=== PATIENT | female | born 1990 | race Caucasian/White ===

== ENCOUNTER 2018-08-12 08:57 | Day surgery (SDC) | payer OTHER ==
[2018-08-09 15:23] VITALS: BMI 22.0
[2018-08-12] MEDS ORDERED: PROPOFOL 20 ML ONE ×2 (09:45)
[2018-08-12] MEDS ORDERED: LIDOCAINE HCL/PF 2% SDV 5ML VIAL ONE (10:47)
[2018-08-12 11:54] VITALS: TEMP 98.4
[2018-08-12 12:26] VITALS: BP 124/70; PULSE 76
--- NOTE | 2018-08-14 15:53 | PATH ---
Surgical Pathology Report Patient Name: MARIMAR DODD [facility]. Rec. #: [id number] /Age/Gender: 1990 (Age: 28) / F Account: [id number] Location: [facility] Taken: 08/12/2018 Received: 08/12/2018 Reported: 08/14/2018 Physicians: Gilberto Newton M.D. Specimen(s) Received A: BX SECOND PORTION DUODENUM B: BX GASTRIC ANTRUM C: BX ESOPHAGUS Clinical History Globus Postoperative diagnosis: Gastritis, 50 foot dilator pass used Final Diagnosis A. SECOND PORTION DUODENUM, BIOPSY: DUODENUM MUCOSA WITH MILD NONSPECIFIC CHRONIC DUODENITIS. NO DEFINITIVE HISTOLOGIC EVIDENCE OF INTRAEPITHELIAL LYMPHOCYTOSIS. B. GASTRIC ANTRUM, BIOPSY: GASTRIC MUCOSA WITH CHRONIC GASTRITIS. IMMUNOSTAIN FOR H. PYLORI IS NEGATIVE. NEGATIVE FOR INTESTINAL METAPLASIA. C. ESOPHAGUS, BIOPSY: ESOPHAGEAL MUCOSA WITH NO SIGNIFICANT PATHOLOGY CHANGE. NEGATIVE FOR INTESTINAL METAPLASIA. NO HISTOLOGIC EVIDENCE OF EOSINOPHILIC ESOPHAGITIS. Electronically Signed Benito Méndez M.D. Gross Description A. Received in formalin, labeled "biopsy second portion of duodenum" are 2 gates, irregular portions of soft tissue measuring 0.5 and 0.6 cm. in greatest dimension. The specimens are submitted in toto in one cassette. B. Received in formalin, labeled "biopsy gastric antrum" are 2 gates, irregular portions of soft tissue averaging 0.3 cm. in greatest dimension. The specimens are submitted in toto in one cassette. C. Received in formalin, labeled "biopsy esophagus" is a gates, irregular portion of soft tissue measuring 0.5 cm. in greatest dimension. The specimen is submitted in toto in one cassette. 08/13/2018 [facility]08/13/2018
== END 2018-08-12 12:00 | disposition home or self-care (01) ==
LOC: FASU-ENDO 08:57
PROVIDERS: ATTEND Internal Medicine Gastroenterology
PROC: 0DB68ZX Excision of Stomach, Via Natural or Artificial Opening Endoscopic, Diagnostic (ICD-10-PCS; 2018-08-12)
PROC: 0DB58ZX Excision of Esophagus, Via Natural or Artificial Opening Endoscopic, Diagnostic (ICD-10-PCS; 2018-08-12)
PROC: 0D748DZ Dilation of Esophagogastric Junction with Intraluminal Device, Via Natural or Artificial Opening Endoscopic (ICD-10-PCS; 2018-08-12)
PROC: 0DB98ZX Excision of Duodenum, Via Natural or Artificial Opening Endoscopic, Diagnostic (ICD-10-PCS; principal; 2018-08-12 10:56)
DX: K29.50 Unspecified chronic gastritis without bleeding (principal); K29.80 Duodenitis without bleeding; R13.10 Dysphagia, unspecified; R12 Heartburn
CPT/HCPCS: 84703; 88305-TC; 88342-TC